=== PATIENT | male | born 1990 | race Caucasian/White ===

== ENCOUNTER 2018-02-09 18:26 | Inpatient (IN) | payer MEDICAID ==
[~2018-02-09] VITALS: Ht 180.3 cm; Wt 69.3 kg
[2018-02-09] MEDS ORDERED: LORazepam 2 MG/ML VIAL IM ONE (18:45)
[2018-02-09] MEDS ORDERED: DiphenhydrAMINE HCL 50 MG/ML VIAL IM ONE (18:45)
[2018-02-09] MEDS ORDERED: HALOPERIDOL LACTATE 5 MG/ML VIAL IM ONE (18:45)
[2018-02-09 18:58] LABS: BASOPHILS % (AUTO) 0.3 % (0.0-2.0); EOSINOPHILS % (AUTO) 0.1 % (1.0-6.0); HEMATOCRIT 45.3 % (41-53); HEMOGLOBIN 15.9 g/dL (13.5-17.5); LYMPHOCYTES # (AUTO) 1.4 K/uL (1.0-4.8); LYMPHOCYTES % (AUTO) 19.2 % (22.0-44.0); MEAN CORPUSCULAR HEMOGLOBIN 29.2 pg (26.0-34.0); MEAN CORPUSCULAR VOLUME 84 fL (80-100); MONOCYTES # (AUTO) 0.7 K/uL (0.1-1.0); MONOCYTES % (AUTO) 9.3 % (2.0-9.0); NEUTROPHILS # (AUTO) 5.2 K/uL (1.8-7.7); NEUTROPHILS % (AUTO) 71.1 % (40.0-70.0); PLATELET COUNT (AUTO) 268 K/uL (150-450); RED BLOOD CELL COUNT(AUTO) 5.43 MIL/uL (4.50-5.90); RED CELL DISTRIBUTION WIDTH 13.8 % (11.5-14.5)
[2018-02-09 19:14] LABS: ANION GAP 8 mmol/L (8-16); CALCIUM, TOTAL 9.3 mg/dL (8.8-10.5); CARBON DIOXIDE 26 mmol/L (22-29); CHLORIDE 97 mmol/L (98-107); CREATININE 1.23 mg/dL (0.60-1.30); GLOMERULAR FILTR. RATE CALC > 60 mL/min (>60); GLUCOSE,RANDOM 107 mg/dL (70-110); POTASSIUM 3.9 mmol/L (3.5-5.1); SODIUM SERUM 131 mmol/L (136-145); UREA NITROGEN, BLOOD 11 mg/dL (7-18)
[2018-02-09 19:21] LABS: ALANINE AMINOTRANSFERASE 41 U/L (12-78); ALBUMIN 3.9 g/dL (3.4-5.0); ALKALINE PHOSPHATASE 76 U/L (46-116); ASPARTATE AMINOTRANSFERASE 40 U/L (15-37); BILIRUBIN,TOTAL 0.8 mg/dL (0.1-1.0)
[2018-02-09] MEDS ORDERED: HALOPERIDOL 5 MG TABLET PO PRN (20:00)
[2018-02-09] MEDS ORDERED: ZOLPIDEM TARTRATE 10 MG TABLET PO PRN (20:00)
[2018-02-09 21:04] LABS: AMPHET/METH SCREEN,URINE POSITIVE (NEGATIVE); BARBITURATE SCREEN, URINE NEGATIVE (NEGATIVE); BENZODIAZEPINES SCREEN,URINE NEGATIVE (NEGATIVE); CANNABINOID SCREEN,URINE POSITIVE (NEGATIVE); COCAINE SCREEN,URINE NEGATIVE (NEGATIVE); METHADONE SCREEN, URINE NEGATIVE (NEGATIVE); OPIATE SCREEN,URINE NEGATIVE (NEGATIVE)
[2018-02-09 21:08] LABS: PHENCYCLIDINE SCREEN,URINE NEGATIVE (NEGATIVE)
[2018-02-10 00:16] VITALS: BP 123/76
[2018-02-10] MEDS ORDERED: DOCUSATE SODIUM 100 MG CAPSULE PO PRN (06:30)
[2018-02-10] MEDS ORDERED: MAGNESIUM HYDROXIDE SUSPENSION 30 ML UDCUP PO PRN (06:30)
[2018-02-10] MEDS ORDERED: ALBUTEROL SULFATE HFA 90 MCG/PUFF 8 GM INHALER IH PRN (06:30)
[2018-02-10] MEDS ORDERED: ONDANSETRON HCL 4 MG TABLET PO PRN (06:30)
[2018-02-10] MEDS ORDERED: ACETAMINOPHEN 325 MG TABLET PO PRN (06:30)
[2018-02-10] MEDS ORDERED: MAG HYDROX/AL HYDROX/SIMETH ES 30 ML SUSPENSION UDCUP PO PRN (06:30)
[2018-02-10] MEDS ORDERED: IBUPROFEN 400 MG TABLET PO PRN (06:30)
[2018-02-10] MEDS ORDERED: CloNIDine HCL 0.1 MG TABLET PO PRN (06:30)
[2018-02-10] MEDS ORDERED: LOPERAMIDE HCL 2 MG CAPSULE PO PRN (06:30)
[2018-02-10] MEDS ORDERED: PETROLATUM,WHITE 71 GM JELLY TP PRN (06:30)
[2018-02-10 08:08] VITALS: BP 121/56
[2018-02-10] MEDS: NICOTINE 14 MG/24 HOUR PATCH TD SCH (08:40)
[2018-02-10 09:05] LABS: CHOL/HDL RATIO 2.2 (4.2-7.3)
[2018-02-10 16:00] VITALS: BP 111/80
[2018-02-10] MEDS: LORazepam 2 MG TABLET PO PRN (16:49)
[2018-02-10] MEDS: LamoTRIgine 25 MG TABLET PO SCH (16:49)
[2018-02-10] MEDS ORDERED: SERTRALINE HCL 50 MG TABLET PO SCH (21:00)
[2018-02-11 06:28] VITALS: BP 122/77
[2018-02-11] MEDS: NICOTINE 14 MG/24 HOUR PATCH TD SCH (08:37)
[2018-02-11] MEDS: LamoTRIgine 25 MG TABLET PO SCH ×2 (08:38→16:20)
[2018-02-11] MEDS ORDERED: ARIPiprazole 10 MG TABLET PO SCH (09:00)
[2018-02-11 16:00] VITALS: BP 119/69
[2018-02-11] MEDS: LORazepam 2 MG TABLET PO PRN (16:20)
[2018-02-11] MEDS ORDERED: SERTRALINE HCL 100 MG TABLET PO SCH (21:00)
[2018-02-12] MEDS: LamoTRIgine 25 MG TABLET PO SCH (08:37)
[2018-02-12] MEDS: NICOTINE 14 MG/24 HOUR PATCH TD SCH (08:38)
[2018-02-12] MEDS ORDERED: ARIPiprazole 15 MG TABLET PO SCH (09:00)
[2018-02-12] MEDS ORDERED: SERT100T12 PO (13:24)
[2018-02-12] MEDS ORDERED: LAMO25 PO (13:24)
[2018-02-12] MEDS ORDERED: ARIP15TA2 PO (13:25)
== END 2018-02-12 15:40 | disposition home or self-care (01) | DRG 750 ==
LOC: EMS 18:27 → B3A 20:37
PROVIDERS: ADMIT Psychiatry & Neurology Psychiatry; ATTEND Psychiatry & Neurology Psychiatry
DX: F25.9 Schizoaffective disorder, unspecified (principal); E87.1 Hypo-osmolality and hyponatremia; F31.4 Bipolar disorder, current episode depressed, severe, without psychotic features; F60.3 Borderline personality disorder; F34.1 Dysthymic disorder; F42.8 Other obsessive-compulsive disorder; R45.87 Impulsiveness; F15.90 Other stimulant use, unspecified, uncomplicated; F41.9 Anxiety disorder, unspecified; F10.10 Alcohol abuse, uncomplicated; Z79.899 Other long term (current) drug therapy
CPT/HCPCS: 87081; 96372; 99285; G0480; J1200; J1630; J2060

== ENCOUNTER 2024-04-21 23:20 | Emergency (ER) | payer MEDICAID, OTHER ==
[~2024-04-21] VITALS: Ht 180.3 cm; Wt 79.5 kg
[~2024-04-21 23:20] MED LIST: ARIP15TA27 PO; LAMO25TA36 PO; SERT-162 PO
[2024-04-21 23:39] VITALS: BP 142/80; PULSE 92; RESP 16; TEMP 98.5; O2SAT 96
[2024-04-22 00:04] LABS: PH,URINE DRUG SCREEN 5.5 (5.0-8.0)
[2024-04-22 00:12] LABS: ALCOHOL, URINE DRUG SCREEN NEGATIVE (NEGATIVE); AMPHET/METH SCREEN,URINE NEGATIVE (NEGATIVE); BARBITURATE SCREEN, URINE NEGATIVE (NEGATIVE); BENZODIAZEPINES SCREEN,URINE NEGATIVE (NEGATIVE); CANNABINOID SCREEN,URINE POSITIVE (NEGATIVE); COCAINE SCREEN,URINE POSITIVE (NEGATIVE); METHADONE SCREEN, URINE NEGATIVE (NEGATIVE); OPIATE SCREEN,URINE NEGATIVE (NEGATIVE); PHENCYCLIDINE SCREEN,URINE NEGATIVE (NEGATIVE)
== END 2024-04-22 02:26 | disposition home or self-care (01) ==
LOC: EMS 23:20
DX: T50.901A Poisoning by unspecified drugs, medicaments and biological substances, accidental (unintentional), initial encounter (principal); F12.90 Cannabis use, unspecified, uncomplicated; F14.10 Cocaine abuse, uncomplicated; F15.10 Other stimulant abuse, uncomplicated; Z79.899 Other long term (current) drug therapy; Y92.89 Other specified places as the place of occurrence of the external cause
CPT/HCPCS: 80307; 99283